=== PATIENT | female | born 1945 | race Caucasian/White ===

== ENCOUNTER → 2016-05-04 | Outpatient (CLI) | payer BC ==
--- NOTE | 2016-05-04 14:13 | REP ---
Pelvic sonography: History: Postmenopausal bleeding. Findings: Transabdominal and transvaginal scanning are performed. Uterine dimensions are 8.6 x 4.6 x 4.8 cm. Endometrial echo is 1.3 cm thick. Multiple fibroids are seen in the uterus. The largest measures 2.4 x 2.2 x 2.0 cm. There is also 1.7 x 1.7 x 1.6 cm fibroid. There is a small quantity of endocervical fluid. A 2.0 x 2.1 x 1.0 cm polypoid mass versus clot is visible in the endometrium as well. Visualized bladder francis are smooth. Neither ovary could be directly visualized. No adnexal mass or cyst is seen on either side on transabdominal or transvaginal scanning. Impression: Multiple uterine fibroids. Question endometrial polyp versus thrombus. Neither ovary could be directly visualized. Otherwise negative. Signed by Silvestre Lopez MD 05/04/2016 03:33 P
== END ==
LOC: M RAD 10:04
PROVIDERS: ATTEND Nurse Practitioner
DX: D25.9 Leiomyoma of uterus, unspecified (principal)

== ENCOUNTER → 2016-06-30 | Day surgery (SDC) | payer BC, MEDICARE ==
[~2016-06-30] VITALS: Ht 165.1 cm; Wt 92.5 kg
[~2016-06-30] MED LIST: ALLO100T PO; ASPI1TAB PO; BIOT50004 PO; CALC-190 PO; CHLO50TA PO; IBUPROFEN 600 MG TAB PO PRN; LIDOCAINE 2% INJ 100 MG/5 ML SDV (FOR ANES.) As Ordered ONE; LR 1,000 ML IV SCH; METO-207 PO; METOCLOPRAMIDE INJ 10MG/2ML VIAL (J2765) IV PRN; MIDAZOLAM INJ 2 MG/2 ML VIAL (J2250) As Ordered ONE; ONDANSETRON 4MG/2ML VIAL (J2405) IV PRN; PERCOCET 5MG/325MG TAB As Ordered ONE; PERCOCET 5MG/325MG TAB PO PRN; PROBCAP4 PO; PROPOFOL 200 MG/20 ML VIAL As Ordered ONE; VALS1TAB48 PO; VITATAB11 PO; ZOCO20TA PO; fentaNYL 100 MCG/2 ML INJECTION (J3010) IV PRN; fentaNYL 250 MCG/5 ML INJECTION (J3010) As Ordered ONE
[2016-06-30 13:50] VITALS: BP 148/66
--- NOTE | 2016-06-30 23:18 | RO ---
DATE OF PROCEDURE: 06/30/2016 PREOPERATIVE DIAGNOSIS: Postmenopausal bleeding and thickened endometrium by ultrasound. POSTOPERATIVE DIAGNOSIS: Postmenopausal bleeding and thickened endometrium by ultrasound. The patient also had a history of fibroids which palpably the exam agreed with today but small ones. PROCEDURE: Dilation and curettage, hysteroscopy and MyoSure resection. SURGEON: Dr. Keke Lozada [facility]: ANESTHESIA: Spinal. DESCRIPTION OF PROCEDURE: Norma was brought to the operating room where sufficient spinal anesthesia was induced. She was prepped, draped and positioned in the usual sterile fashion. The prep itself cracked the posterior fourchette even though they worked gently in this 71-year-old woman. She has such marked atrophic changes that even just the scrub cracked the surface of the skin and so we used the narrow sidewall retractor rather than a weighted, we just could not fit that, we could not fit an [place] either. And really with the narrow vagina, did not have a good view of the cervix and so we removed the instruments and I just palpated the cervix and we brought it down by grasping it via palpation. We could then see the cervix, but I could not get even the smallest dilator in. We got some other smaller tools, so that we could start the dilation and a little bit of old clot was passed as we opened the stenotic cervix. The dilation itself went in a very uncomplicated fashion, and we did collect, again, some of that old clot as part of the specimen but then when we went to place the scope, we had a little trouble getting it started on this sort of flat cervix because the flat end of the scope just would not initiate well and it scraped along the back wall of the vagina, which caused a small tear in the back wall of the vagina. That laceration may be a centimeter in size really, but we ended up having a good view with the scope of that and could see there was not any deep bleeding or anything like that. We backed out of there and could see the rest of the vagina. It was not causing any difficulty and used the scope for that visualization and then repositioned back in the uterus where we could see. We did not have any perforation of the uterus, so she just had a little whether you want it call laceration or perforation of the posterior vaginal wall and the mid posterior cul-de-sac where you would do a culdocentesis, so not in a location that should cause any difficulty. This is all extraperitoneal not intraperitoneal as far as that injury goes. We then were able to visualize the endometrial cavity and photograph this, and there was a little bit of calcium deposits, or fibrous deposits, or fatty deposits. The specimen will certainly show this. There is not any hypervascular tissue. On the anterior left, there was a small fibroid that we could palpate and a few cells off that were sampled but they really had an avascular appearance. We used a regular MyoSure to resect the endometrium, and we could get a 360 resection, so we did get a good sample of what is there. We did not see anything actively bleeding and that blood looked very, very old, so I am not sure how long the stenotic cervix had held that blood in but it certainly had that dark, re-liquefied old appearance. We also were careful to get some specimen from the endocervical canal, and, of course, this patient is menopausal, so that is two-thirds of the cavity. So we made sure we had good sampling at the corpus and in the endocervix with the MyoSure. Following that, we did some curettage, very carefully placing the curette and then completed the procedure. Again, we visualized that area of small vaginal laceration and small vulvar crack from the prep and there was no active bleeding and the procedure was then ended. Estimated blood loss for the procedure was less than 5 mL. Fluid replacement was crystalloid. Complications: None. Condition and Disposition: Norma tolerated the procedure well and was recovering in the recovery room in good condition.
== END | disposition home or self-care (01) ==
LOC: M SDC 07:20
PROVIDERS: ATTEND Obstetrics & Gynecology
DX: N95.0 Postmenopausal bleeding (principal); N85.01 Benign endometrial hyperplasia; N99.71 Accidental puncture and laceration of a genitourinary system organ or structure during a genitourinary system procedure; I10 Essential (primary) hypertension; E78.00 Pure hypercholesterolemia, unspecified; Z79.82 Long term (current) use of aspirin; M10.9 Gout, unspecified; Z79.899 Other long term (current) drug therapy
CPT/HCPCS: 58558; 88305; J2250; J3010